=== PATIENT | female | born 1980 | race African-American/Black ===

== ENCOUNTER 2020-02-09 11:23 | Emergency (ER) | payer MEDICARE, OTHER ==
[~2020-02-09] VITALS: Ht 167.6 cm; Wt 95.3 kg
[2020-02-09 12:04] LABS: Basophils # (auto) 0 10 ^3/uL (0-0.2); Eosinophils # (auto) 0.1 10 ^3/uL (0-0.8); Lymphocytes # (auto) 2.1 10 ^3/uL (0.4-5.4); Mean Corpuscular Hgb Conc. 33.5 g/dL (32.0-36.0); Neutrophils # (auto) 2.8 10 ^3/uL (1.6-8.6); Nucleated Red Blood Cells % 0.1 %; White Blood Cell 5.5 10^3/uL (4.4-10.8)
[2020-02-09 12:09] LABS: Basophils % (auto) 0.4 % (0.0-2.0); Eosinophils % (auto) 0.9 % (0.0-7.0); Hematocrit 38.1 % (36.0-46.0); Hemoglobin 12.8 g/dL (12.2-16.2); Mean Corpuscular Hemoglobin 25.4 pg (28.0-32.0); Mean Corpuscular Volume 75.9 fL (80.0-100.0); Monocytes # (auto) 0.5 10 ^3/uL (0-1.3); Monocytes % (auto) 8.8 % (0.0-12.0); Neutrophils % (auto) 50.9 % (37.0-80.0); Platelet Count (auto) 244 10^3/uL (140-450); Red Blood Cells 5.02 10^6/uL (4.0-5.20)
[2020-02-09 12:17] LABS: Albumin 3.6 g/dL (3.4-5.0); Anion Gap 5 (5-15); Blood Urea Nitrogen 15 mg/dL (7-18); Carbon Dioxide 24 mmol/L (21-32); Chloride 109 mmol/L (98-107); Glucose 82 mg/dL (74-106); Potassium 3.7 mmol/L (3.5-5.1); Sodium 138 mmol/L (136-145)
[2020-02-09 12:23] LABS: Alanine Aminotransferase 23 U/L (13-56); Alkaline Phosphatase 63 U/L (45-117); Aspartate Aminotransferase 15 U/L (15-37); BUN/Creatinine Ratio 17.4; Bilirubin, Total 0.3 mg/dL (0.2-1.0); GFR African American 95 mL/min; GFR Non-African American 78 mL/min; Total Protein 7.7 g/dL (6.4-8.2)
[2020-02-09] MEDS ORDERED: IOHEXOL 350 MG/ML 100ML IJ ONE (13:01)
[2020-02-09 14:01] VITALS: BP 103/52
== END 2020-02-09 14:51 | disposition home or self-care (01) ==
LOC: ER 11:23
DX: R07.89 Other chest pain (principal); E78.5 Hyperlipidemia, unspecified; F17.210 Nicotine dependence, cigarettes, uncomplicated; Z88.0 Allergy status to penicillin
CPT/HCPCS: 36415; 71275; 80053; 84484; 85025; 85379; 93005; 99285; Q9967

== ENCOUNTER 2020-04-01 01:24 | Emergency (ER) | payer OTHER ==
[~2020-04-01] VITALS: Ht 167.6 cm; Wt 128.8 kg
[2020-04-01] MEDS ORDERED: MORPHINE SULFATE 4 MG/ML SYR/VIAL IV ONE (07:45)
[2020-04-01] MEDS ORDERED: ONDANSETRON HCL 4 MG/2 ML VIAL IV ONE (07:45)
[2020-04-01] MEDS ORDERED: SODIUM CHLORIDE 0.9% 1,000 ML IV ONE (07:45)
[2020-04-01] MEDS ORDERED: PANTOPRAZOLE 40 MG/10 ML VIAL INJ IV ONE (07:45)
[2020-04-01 08:40] VITALS: BP 122/80
== END 2020-04-01 08:42 | disposition home or self-care (01) ==
LOC: ER 01:24
DX: K80.20 Calculus of gallbladder without cholecystitis without obstruction (principal); F17.210 Nicotine dependence, cigarettes, uncomplicated; R42 Dizziness and giddiness; Z88.0 Allergy status to penicillin
CPT/HCPCS: 71045; 76705; 93005

== ENCOUNTER 2020-04-02 17:55 | Emergency (ER) | payer OTHER ==
[~2020-04-02] VITALS: Ht 167.6 cm; Wt 128.8 kg
[2020-04-02 23:21] LABS: Basophils # (auto) 0 10 ^3/uL (0-0.2); Basophils % (auto) 0.6 % (0.0-2.0); Eosinophils # (auto) 0.1 10 ^3/uL (0-0.8); Eosinophils % (auto) 1.2 % (0.0-7.0); Hematocrit 39.2 % (36.0-46.0); Lymphocytes # (auto) 3.5 10 ^3/uL (0.4-5.4); Lymphocytes % (auto) 45.3 % (10.0-50.0); Mean Corpuscular Hemoglobin 25.2 pg (28.0-32.0); Mean Corpuscular Hgb Conc. 33.1 g/dL (32.0-36.0); Monocytes # (auto) 0.6 10 ^3/uL (0-1.3); Monocytes % (auto) 7.4 % (0.0-12.0); Neutrophils # (auto) 3.5 10 ^3/uL (1.6-8.6); Neutrophils % (auto) 45.5 % (37.0-80.0); Nucleated Red Blood Cells % 0.2 %; Platelet Count (auto) 259 10^3/uL (140-450); Red Blood Cells 5.16 10^6/uL (4.0-5.20); Red Cell Distribution Width 17.4 % (11.8-14.3); White Blood Cell 7.7 10^3/uL (4.4-10.8)
[2020-04-02 23:43] LABS: Albumin 3.6 g/dL (3.4-5.0); Calcium 9.3 mg/dL (8.5-10.1); Potassium 3.9 mmol/L (3.5-5.1)
[2020-04-02 23:46] LABS: BUN/Creatinine Ratio 18.2
[2020-04-02 23:48] LABS: Bilirubin, Total 0.4 mg/dL (0.2-1.0); Total Protein 8.1 g/dL (6.4-8.2)
[2020-04-03] MEDS ORDERED: MORPHINE SULFATE 4 MG/ML SYR/VIAL IV ONE (01:00)
[2020-04-03] MEDS ORDERED: ONDANSETRON HCL 4 MG/2 ML VIAL IV ONE (01:00)
[2020-04-03 01:14] LABS: Amylase 45 U/L (25-115); Lipase 75 U/L (73-393)
[2020-04-03] MEDS ORDERED: HYDROcodone-ACET 5/325MG TAB PO ONE (01:30)
[2020-04-03 02:01] VITALS: BP 115/70
== END 2020-04-03 02:20 | disposition home or self-care (01) ==
LOC: ER 17:55
DX: K80.20 Calculus of gallbladder without cholecystitis without obstruction (principal); E78.5 Hyperlipidemia, unspecified; F17.210 Nicotine dependence, cigarettes, uncomplicated; Z88.0 Allergy status to penicillin
CPT/HCPCS: 36415; 80053; 82150; 83690; 85025; 96374; 99283; J2405

== ENCOUNTER 2020-05-25 14:31 | Emergency (ER) | payer MEDICAID, OTHER ==
[~2020-05-25] VITALS: Ht 167.6 cm; Wt 131.5 kg
[2020-05-25 15:25] VITALS: BP 112/75
[2020-05-25] MEDS ORDERED: ASPirin 81 mg TAB PO ONE (15:45)
[2020-05-25] MEDS ORDERED: PANTOPRAZOLE 40 MG TAB PO ONE (15:45)
[2020-05-25 16:11] LABS: Alcohol, Urine < 3.0 mg/dL (0-10); Amphetamine Screen, Urine NEGATIVE (NEGATIVE); Barbiturate Scree,Urine NEGATIVE (NEGATIVE); Benzodiazephine Screen, Urine NEGATIVE (NEGATIVE); Cannabinoid Screen, Urine NEGATIVE (NEGATIVE); Cocaine Screen, Urine NEGATIVE (NEGATIVE); Opiate Scree,Urine NEGATIVE (NEGATIVE); Phencyclidine Screen, Urine NEGATIVE (NEGATIVE)
[2020-05-25 16:33] LABS: Urine Bacteria FEW /hpf (None Seen); Urine Blood Negative /uL (Negative); Urine Mucus FEW (None Seen); Urine Specific Gravity 1.031 (1.001-1.035); Urine WBC 1 /hpf (0 - 5)
[2020-05-25] MEDS ORDERED: cefTRIAXone SOD 1,000 MG VL IM ONE (16:45)
[2020-05-25 16:51] LABS: Basophils # (auto) 0.1 10 ^3/uL (0-0.2); Eosinophils # (auto) 0.1 10 ^3/uL (0-0.8); Hemoglobin 12.6 g/dL (12.2-16.2); Monocytes # (auto) 0.5 10 ^3/uL (0-1.3); Neutrophils # (auto) 2.6 10 ^3/uL (1.6-8.6); Nucleated Red Blood Cells % 0.2 %; White Blood Cell 6.1 10^3/uL (4.4-10.8)
[2020-05-25 16:52] LABS: Basophils % (auto) 1.9 % (0.0-2.0); Eosinophils % (auto) 1.8 % (0.0-7.0); Hematocrit 37.7 % (36.0-46.0); Lymphocytes # (auto) 2.7 10 ^3/uL (0.4-5.4); Lymphocytes % (auto) 44.6 % (10.0-50.0); Mean Corpuscular Hemoglobin 25.5 pg (28.0-32.0); Mean Corpuscular Hgb Conc. 33.4 g/dL (32.0-36.0); Mean Corpuscular Volume 76.3 fL (80.0-100.0); Monocytes % (auto) 8.2 % (0.0-12.0); Neutrophils % (auto) 43.5 % (37.0-80.0); Platelet Count (auto) 237 10^3/uL (140-450); Red Blood Cells 4.94 10^6/uL (4.0-5.20); Red Cell Distribution Width 17.5 % (11.8-14.3)
[2020-05-25 17:08] LABS: Albumin 3.6 g/dL (3.4-5.0); Anion Gap 5 (5-15); Blood Urea Nitrogen 15 mg/dL (7-18); Calcium 8.9 mg/dL (8.5-10.1); Carbon Dioxide 25 mmol/L (21-32); Chloride 107 mmol/L (98-107); Glucose 73 mg/dL (74-106); Potassium 3.8 mmol/L (3.5-5.1); Sodium 137 mmol/L (136-145)
[2020-05-25 17:13] LABS: Alanine Aminotransferase 18 U/L (13-56); Alkaline Phosphatase 59 U/L (45-117); Aspartate Aminotransferase 13 U/L (15-37); Bilirubin, Total 0.2 mg/dL (0.2-1.0); GFR African American 105 mL/min; GFR Non-African American 87 mL/min; Total Protein 7.4 g/dL (6.4-8.2)
[2020-05-25] MEDS ORDERED: ACETAMINOPHEN 325 MG TAB PO ONE (19:30)
== END 2020-05-26 00:15 | disposition home or self-care (01) ==
LOC: ER 14:31
DX: K29.70 Gastritis, unspecified, without bleeding (principal); N39.0 Urinary tract infection, site not specified; R07.2 Precordial pain; J45.909 Unspecified asthma, uncomplicated; G89.29 Other chronic pain; E78.5 Hyperlipidemia, unspecified; F17.210 Nicotine dependence, cigarettes, uncomplicated; Z88.0 Allergy status to penicillin
CPT/HCPCS: 36415; 71046; 80053; 80307; 81001; 83880; 84443; 84484; 85025; 93005; 96372; 99285; J0696

== ENCOUNTER 2020-06-12 10:31 | Emergency (ER) | payer MEDICAID ==
[~2020-06-12] VITALS: Ht 167.6 cm; Wt 106.1 kg
[2020-06-12 11:27] LABS: Eosinophils # (auto) 0.1 10 ^3/uL (0-0.8); Hemoglobin 12.4 g/dL (12.2-16.2); Mean Corpuscular Hgb Conc. 33.5 g/dL (32.0-36.0); Monocytes # (auto) 0.3 10 ^3/uL (0-1.3); Neutrophils # (auto) 2.1 10 ^3/uL (1.6-8.6); Nucleated Red Blood Cells % 0.2 %
[2020-06-12 11:28] LABS: Basophils # (auto) 0.1 10 ^3/uL (0-0.2); Basophils % (auto) 1.3 % (0.0-2.0); Eosinophils % (auto) 1.6 % (0.0-7.0); Mean Corpuscular Hemoglobin 25.3 pg (28.0-32.0); Mean Corpuscular Volume 75.4 fL (80.0-100.0); Monocytes % (auto) 6.8 % (0.0-12.0); Neutrophils % (auto) 46.3 % (37.0-80.0); Platelet Count (auto) 247 10^3/uL (140-450); Red Cell Distribution Width 17.1 % (11.8-14.3); White Blood Cell 4.5 10^3/uL (4.4-10.8)
[2020-06-12 11:58] LABS: Albumin 3.6 g/dL (3.4-5.0); Anion Gap 5 (5-15); Blood Urea Nitrogen 11 mg/dL (7-18); Carbon Dioxide 25 mmol/L (21-32); Chloride 110 mmol/L (98-107); Glucose 78 mg/dL (74-106); Magnesium 2.5 mg/dL (1.6-2.6); Potassium 3.8 mmol/L (3.5-5.1); Sodium 140 mmol/L (136-145)
[2020-06-12 12:04] LABS: Alanine Aminotransferase 19 U/L (13-56); Alkaline Phosphatase 63 U/L (45-117); Aspartate Aminotransferase 15 U/L (15-37); BUN/Creatinine Ratio 15.3; Bilirubin, Total 0.2 mg/dL (0.2-1.0); GFR African American 117 mL/min; GFR Non-African American 96 mL/min; Total Protein 7.6 g/dL (6.4-8.2)
[2020-06-12] MEDS ORDERED: ASPirin 81 mg TAB PO ONE (15:15)
[2020-06-12 15:38] LABS: INR 0.97 (0.9-1.15); Partial Thromboplastin Time 30.1 sec (23.0-31.2)
[2020-06-12] MEDS ORDERED: PANTOPRAZOLE 40 MG TAB PO ONE (19:30)
[2020-06-12] MEDS ORDERED: HYDROcodone-ACET 5/325MG TAB PO ONE (19:30)
[2020-06-12 19:47] LABS: Urine Bacteria FEW /hpf (None Seen); Urine Blood TRACE /uL (Negative); Urine Specific Gravity 1.027 (1.001-1.035); Urine WBC 5 /hpf (0 - 5)
[2020-06-12 23:00] VITALS: BP 95/57
== END 2020-06-12 23:18 | disposition home or self-care (01) ==
LOC: ER 10:31
DX: K80.20 Calculus of gallbladder without cholecystitis without obstruction (principal); F17.210 Nicotine dependence, cigarettes, uncomplicated; Z88.0 Allergy status to penicillin
CPT/HCPCS: 36415; 71046; 76705; 80053; 81001; 81025; 83735; 83880; 84443; 84484; 85025; 85379; 85610; 85730; 93005

== ENCOUNTER 2020-06-14 16:09 | Emergency (ER) | payer MEDICAID ==
[~2020-06-14] VITALS: Ht 167.6 cm; Wt 133.4 kg
[2020-06-14 16:27] VITALS: BP 152/92
[2020-06-14] MEDS ORDERED: KETOROLAC TROMETH 60MG/2ML VIAL IM ONE (17:15)
== END 2020-06-14 18:02 | disposition home or self-care (01) ==
LOC: ER 16:09
DX: K80.20 Calculus of gallbladder without cholecystitis without obstruction (principal); M51.37 Other intervertebral disc degeneration, lumbosacral region; M54.16 Radiculopathy, lumbar region; F17.210 Nicotine dependence, cigarettes, uncomplicated; Z88.0 Allergy status to penicillin
CPT/HCPCS: 74176; 81002; 81025; 96372; 99284; J1885

== ENCOUNTER 2020-09-15 11:28 | Emergency (ER) | payer MEDICAID ==
[~2020-09-15] VITALS: Ht 167.6 cm; Wt 127.0 kg
[2020-09-15 11:38] VITALS: BP 136/81
[2020-09-15] MEDS ORDERED: SODIUM CHLORIDE 0.9% 500 ML IVB ONE (12:00)
[2020-09-15] MEDS ORDERED: ONDANSETRON HCL 4 MG/2 ML VIAL IV ONE (12:00)
[2020-09-15] MEDS ORDERED: KETOROLAC TROMETH 30 MG/ML 1ML VIAL IV ONE (12:00)
[2020-09-15 13:19] LABS: Eosinophils # (auto) 0.1 10 ^3/uL (0-0.8); Nucleated Red Blood Cells % 0.1 %
[2020-09-15 13:20] LABS: Basophils # (auto) 0.1 10 ^3/uL (0-0.2); Basophils % (auto) 1.8 % (0.0-2.0); Eosinophils % (auto) 1.7 % (0.0-7.0); Hematocrit 34.9 % (36.0-46.0); Hemoglobin 11.8 g/dL (12.2-16.2); Mean Corpuscular Hemoglobin 25.3 pg (28.0-32.0); Mean Corpuscular Hgb Conc. 33.9 g/dL (32.0-36.0); Mean Corpuscular Volume 74.6 fL (80.0-100.0); Monocytes # (auto) 0.6 10 ^3/uL (0-1.3); Monocytes % (auto) 10.7 % (0.0-12.0); Neutrophils # (auto) 2.4 10 ^3/uL (1.6-8.6); Neutrophils % (auto) 46.8 % (37.0-80.0); Platelet Count (auto) 248 10^3/uL (140-450); Red Blood Cells 4.69 10^6/uL (4.0-5.20); Red Cell Distribution Width 16.9 % (11.8-14.3); White Blood Cell 5.2 10^3/uL (4.4-10.8)
[2020-09-15 16:14] LABS: Albumin 3.3 g/dL (3.4-5.0); BUN/Creatinine Ratio 17.6; Bilirubin, Total 0.3 mg/dL (0.2-1.0); Calcium 8.9 mg/dL (8.5-10.1); Potassium 4.1 mmol/L (3.5-5.1); Total Protein 7.3 g/dL (6.4-8.2)
== END 2020-09-15 19:48 | disposition home or self-care (01) ==
LOC: ER 11:28
DX: K80.20 Calculus of gallbladder without cholecystitis without obstruction (principal); N39.0 Urinary tract infection, site not specified; E78.5 Hyperlipidemia, unspecified; F17.210 Nicotine dependence, cigarettes, uncomplicated; Z88.0 Allergy status to penicillin
CPT/HCPCS: 36415; 74176; 80053; 85025

== ENCOUNTER → 2020-10-04 | Outpatient (CLI) | payer MEDICAID ==
[2020-10-04 10:44] LABS: Urine Bacteria FEW /hpf (None Seen); Urine Blood TRACE /uL (Negative); Urine Specific Gravity 1.023 (1.001-1.035); Urine WBC 1 /hpf (0 - 5)
[2020-10-04 10:57] LABS: CRP High Sensitivity 0.38 mg/dL (< 0.3)
== END | disposition home or self-care (01) ==
LOC: LAB 10:08
PROVIDERS: ATTEND Internal Medicine
DX: K76.0 Fatty (change of) liver, not elsewhere classified (principal); R42 Dizziness and giddiness; D64.9 Anemia, unspecified
CPT/HCPCS: 36415; 81001; 82150; 83036; 83690; 84443; 85652; 86141

== ENCOUNTER 2020-12-24 15:04 | Emergency (ER) | payer MEDICAID ==
[~2020-12-24] VITALS: Ht 167.6 cm; Wt 118.8 kg
[2020-12-24] MEDS ORDERED: SODIUM CHLORIDE 0.9% 1,000 ML IVB ONE (15:30)
[2020-12-24] MEDS ORDERED: IOHEXOL 350 MG/ML 100ML IJ ONE (15:51)
[2020-12-24 17:00] LABS: Basophils # (auto) 0.1 10 ^3/uL (0-0.2); Basophils % (auto) 1.8 % (0.0-2.0); Eosinophils # (auto) 0.1 10 ^3/uL (0-0.8); Eosinophils % (auto) 2.2 % (0.0-7.0); Hematocrit 37.5 % (36.0-46.0); Lymphocytes # (auto) 2.5 10 ^3/uL (0.4-5.4); Lymphocytes % (auto) 37.4 % (10.0-50.0); Mean Corpuscular Volume 74.9 fL (80.0-100.0); Monocytes # (auto) 0.5 10 ^3/uL (0-1.3); Monocytes % (auto) 7.7 % (0.0-12.0); Neutrophils # (auto) 3.3 10 ^3/uL (1.6-8.6); Neutrophils % (auto) 50.9 % (37.0-80.0); Nucleated Red Blood Cells % 0.8 %; Platelet Count (auto) 256 10^3/uL (140-450); Red Cell Distribution Width 18.3 % (11.8-14.3); White Blood Cell 6.6 10^3/uL (4.4-10.8)
[2020-12-24 17:23] LABS: Chloride 110 mmol/L (98-107); Potassium 4.2 mmol/L (3.5-5.1); Sodium 141 mmol/L (136-145)
[2020-12-24] MEDS ORDERED: ASPirin 81 mg TAB PO ONE (17:30)
[2020-12-24 17:41] LABS: Alanine Aminotransferase 21 U/L (13-56); Albumin 3.4 g/dL (3.4-5.0); Alkaline Phosphatase 64 U/L (45-117); Anion Gap 6 (5-15); Aspartate Aminotransferase 22 U/L (15-37); BUN/Creatinine Ratio 17.2; Bilirubin, Total 0.3 mg/dL (0.2-1.0); Blood Urea Nitrogen 16 mg/dL (7-18); Carbon Dioxide 25 mmol/L (21-32); GFR African American 86 mL/min; GFR Non-African American 71 mL/min; Glucose 79 mg/dL (74-106); Lipase 79 U/L (73-393); Total Protein 7.3 g/dL (6.4-8.2)
[2020-12-24 18:20] VITALS: BP 129/80
== END 2020-12-24 18:21 | disposition home or self-care (01) ==
LOC: ER 15:04
DX: R07.89 Other chest pain (principal); F41.9 Anxiety disorder, unspecified; F17.210 Nicotine dependence, cigarettes, uncomplicated; E78.5 Hyperlipidemia, unspecified; Z90.49 Acquired absence of other specified parts of digestive tract; Z88.0 Allergy status to penicillin
CPT/HCPCS: 36415; 71275; 80053; 83690; 84484; 85025; 85379; 93005; 99285; Q9967

== ENCOUNTER 2021-02-07 08:53 | Emergency (ER) | payer MEDICAID ==
[~2021-02-07] VITALS: Ht 167.6 cm; Wt 127.0 kg
[2021-02-07] MEDS ORDERED: ASPirin 81 mg TAB PO ONE (09:15)
[2021-02-07 09:34] LABS: Basophils # (auto) 0.1 10 ^3/uL (0-0.2); Eosinophils # (auto) 0.1 10 ^3/uL (0-0.8); Hemoglobin 12.3 g/dL (12.2-16.2); Monocytes # (auto) 0.5 10 ^3/uL (0-1.3)
[2021-02-07 09:37] LABS: Basophils % (auto) 1.4 % (0.0-2.0); Eosinophils % (auto) 1.3 % (0.0-7.0); Hematocrit 34.9 % (36.0-46.0); Lymphocytes # (auto) 2.2 10 ^3/uL (0.4-5.4); Lymphocytes % (auto) 41.4 % (10.0-50.0); Mean Corpuscular Hemoglobin 25.7 pg (28.0-32.0); Mean Corpuscular Hgb Conc. 35.2 g/dL (32.0-36.0); Monocytes % (auto) 9.2 % (0.0-12.0); Neutrophils # (auto) 2.5 10 ^3/uL (1.6-8.6); Neutrophils % (auto) 46.7 % (37.0-80.0); Nucleated Red Blood Cells % 0.1 %; Platelet Count (auto) 231 10^3/uL (140-450); Red Blood Cells 4.78 10^6/uL (4.0-5.20); Red Cell Distribution Width 17.6 % (11.8-14.3); White Blood Cell 5.3 10^3/uL (4.4-10.8)
[2021-02-07 10:00] LABS: Chloride 112 mmol/L (98-107); Potassium 3.8 mmol/L (3.5-5.1); Sodium 141 mmol/L (136-145)
[2021-02-07 10:18] LABS: Alanine Aminotransferase 18 U/L (13-56); Albumin 3.4 g/dL (3.4-5.0); Alkaline Phosphatase 63 U/L (45-117); Anion Gap 7 (5-15); Aspartate Aminotransferase 13 U/L (15-37); BUN/Creatinine Ratio 17.3; Bilirubin, Total 0.3 mg/dL (0.2-1.0); Blood Urea Nitrogen 14 mg/dL (7-18); Calcium 8.7 mg/dL (8.5-10.1); Carbon Dioxide 22 mmol/L (21-32); GFR African American 101 mL/min; GFR Non-African American 84 mL/min; Glucose 87 mg/dL (74-106); Magnesium 2.2 mg/dL (1.6-2.6); Total Protein 7.6 g/dL (6.4-8.2)
[2021-02-07 10:21] LABS: Urine Bacteria FEW /hpf (None Seen); Urine Blood Negative /uL (Negative); Urine Specific Gravity 1.034 (1.001-1.035); Urine WBC 4 /hpf (0 - 5)
[2021-02-07 10:59] VITALS: BP 113/76
== END 2021-02-07 11:11 | disposition home or self-care (01) ==
LOC: ER 08:53
DX: R07.89 Other chest pain (principal); N39.0 Urinary tract infection, site not specified; E78.5 Hyperlipidemia, unspecified; F17.210 Nicotine dependence, cigarettes, uncomplicated; Z90.49 Acquired absence of other specified parts of digestive tract; Z88.0 Allergy status to penicillin
CPT/HCPCS: 36415; 71046; 80053; 81001; 83690; 83735; 84484; 85025; 93005

== ENCOUNTER 2021-03-20 09:04 | Emergency (ER) | payer MEDICAID ==
[~2021-03-20] VITALS: Ht 167.6 cm; Wt 119.7 kg
[2021-03-20 09:35] LABS: Basophils # (auto) 0.1 10 ^3/uL (0-0.2); Eosinophils # (auto) 0.1 10 ^3/uL (0-0.8); Monocytes # (auto) 0.4 10 ^3/uL (0-1.3); Nucleated Red Blood Cells % 0.1 %
[2021-03-20 09:39] LABS: Basophils % (auto) 1.3 % (0.0-2.0); Eosinophils % (auto) 2.2 % (0.0-7.0); Hematocrit 36.4 % (36.0-46.0); Hemoglobin 12.2 g/dL (12.2-16.2); Lymphocytes # (auto) 2.4 10 ^3/uL (0.4-5.4); Mean Corpuscular Hemoglobin 24.5 pg (28.0-32.0); Mean Corpuscular Hgb Conc. 33.5 g/dL (32.0-36.0); Mean Corpuscular Volume 73.2 fL (80.0-100.0); Monocytes % (auto) 6.7 % (0.0-12.0); Neutrophils # (auto) 2.4 10 ^3/uL (1.6-8.6); Neutrophils % (auto) 44.8 % (37.0-80.0); Red Blood Cells 4.98 10^6/uL (4.0-5.20); Red Cell Distribution Width 18.6 % (11.8-14.3); White Blood Cell 5.3 10^3/uL (4.4-10.8)
[2021-03-20 10:05] LABS: Albumin 3.2 g/dL (3.4-5.0); Calcium 8.5 mg/dL (8.5-10.1); Potassium 3.9 mmol/L (3.5-5.1)
[2021-03-20 10:09] LABS: BUN/Creatinine Ratio 15.7; Bilirubin, Total 0.5 mg/dL (0.2-1.0); Total Protein 7.3 g/dL (6.4-8.2)
[2021-03-20] MEDS ORDERED: ASPirin 81 mg TAB PO ONE (10:30)
[2021-03-20 10:35] VITALS: BP 109/69
== END 2021-03-20 11:19 | disposition home or self-care (01) ==
LOC: ER 09:04
DX: R10.30 Lower abdominal pain, unspecified (principal); F41.9 Anxiety disorder, unspecified; E46 Unspecified protein-calorie malnutrition; E78.5 Hyperlipidemia, unspecified; F17.210 Nicotine dependence, cigarettes, uncomplicated; Z68.41 Body mass index [BMI] 40.0-44.9, adult; Z90.49 Acquired absence of other specified parts of digestive tract; Z88.0 Allergy status to penicillin
CPT/HCPCS: 36415; 74176; 80053; 83690; 84484; 85025

== ENCOUNTER → 2024-08-08 | Outpatient (CLI) | payer MEDICAID ==
[2024-08-08 10:38] LABS: Urine Bacteria None Seen /hpf (None Seen)
[2024-08-08 11:11] LABS: Basophils # (auto) 0 10 ^3/uL (0-0.2); Basophils % (auto) 0.7 % (0.0-2.0); Eosinophils # (auto) 0.2 10 ^3/uL (0-0.8); Eosinophils % (auto) 2.8 % (0.0-7.0); Hematocrit 36.4 % (36.0-46.0); Hemoglobin 12.2 g/dL (12.2-16.2); Lymphocytes # (auto) 2.3 10 ^3/uL (0.4-5.4); Lymphocytes % (auto) 41.1 % (10.0-50.0); Mean Corpuscular Hemoglobin 25.4 pg (28.0-32.0); Mean Corpuscular Hgb Conc. 33.6 g/dL (32.0-36.0); Mean Corpuscular Volume 75.6 fL (80.0-100.0); Monocytes # (auto) 0.4 10 ^3/uL (0-1.3); Monocytes % (auto) 7.8 % (0.0-12.0); Neutrophils # (auto) 2.6 10 ^3/uL (1.6-8.6); Neutrophils % (auto) 47.6 % (37.0-80.0); Platelet Count (auto) 224 10^3/uL (140-450); Red Blood Cells 4.82 10^6/uL (4.0-5.20); Red Cell Distribution Width 16.6 % (11.8-14.3); White Blood Cell 5.5 10^3/uL (4.4-10.8)
[2024-08-08 11:23] LABS: Urine Blood Negative /uL (Negative); Urine Clarity Turbid (Clear); Urine Color Light-Yellow (Yellow); Urine Mucus FEW (None Seen); Urine Protein, UAD Negative (Negative); Urine Specific Gravity 1.024 (1.001-1.035); Urine Urobilinogen Normal (Negative); Urine WBC 4 /hpf (0 - 5)
[2024-08-08 11:24] LABS: Alanine Aminotransferase 10 U/L (7-40); Albumin 3.7 g/dL (3.2-4.8); Alkaline Phosphatase 64 U/L (46-116); Anion Gap 7 (5-15); Aspartate Aminotransferase 11 U/L (13-40); BUN/Creatinine Ratio 14.5 (10.0-20.0); Bilirubin, Total 0.3 mg/dL (0.2-1.0); Blood Urea Nitrogen 11 mg/dL (9-23); Calcium 9.6 mg/dL (8.7-10.4); Carbon Dioxide 26 mmol/L (20-31); Chloride 108 mmol/L (98-107); Cholesterol 189 mg/dL (< 200); Glucose 87 mg/dL (74-106); HDL Cholesterol 47 mg/dL (40-59); LDL Cholesterol 133 mg/dL (< 100); Magnesium 1.9 mg/dL (1.6-2.6); Sodium 141 mmol/L (136-145); Triglycerides 77 mg/dL (< 150)
[2024-08-08 11:25] LABS: Total Protein 6.4 g/dL (5.7-8.2)
[2024-08-08 11:41] LABS: Follicle Stimulating Hormone 6.59 IU/L (SEE BELOW); Leuteinizing Hormone 11.7 IU/L
== END | disposition home or self-care (01) ==
LOC: LAB 10:17
PROVIDERS: ATTEND Internal Medicine
DX: I10 Essential (primary) hypertension (principal); E66.9 Obesity, unspecified; F41.9 Anxiety disorder, unspecified; R23.2 Flushing; Z00.00 Encounter for general adult medical examination without abnormal findings
CPT/HCPCS: 36415; 80053; 80061; 81001; 82670; 83001; 83002; 83036; 83735; 84144; 84443; 85025

== ENCOUNTER → 2024-09-15 | Outpatient (CLI) | payer MEDICAID | END | disposition home or self-care (01) | LOC: LAB 09:00 | PROVIDERS: ATTEND Internal Medicine | DX: R07.9 Chest pain, unspecified (principal) | CPT/HCPCS: 36415; 84484; 85379 ==

== ENCOUNTER 2024-09-28 09:26 | Inpatient (IN) | payer MEDICAID ==
[~2024-09-28] VITALS: Ht 167.6 cm; Wt 130.2 kg
--- NOTE | 2024-09-28 09:34 | ECG ---
[facility] Test Date: 2024-09-28 Test Time: 09:33:05 Pat Name: ORIANA RED Department: ER Room: 0202T Gender: F Maintenance [place]: ONEIL : 1980 Requested By: RAOUL ZUNIGA Order Number: [id number] Reading MD: Naveen Alvarenga Measurements Intervals [place] Rate: 95 P: 40 MA: 154 QRS: 55 QRSD: 89 T: -6 QT: 340 QTc: 428 Interpretive Statements Sinus rhythm Low voltage, precordial leads Abnormal R-wave progression, early transition Borderline T abnormalities, diffuse leads Electronically Signed On 09-29-2024 17:16:42 PST by Naveen Alvarenga Please click the below link to view image of tracing.
--- NOTE | 2024-09-28 09:42 | ED.PDOC ---
HPI Comments 44 year old female presents to the ED with chief complaint of chest pain. Patient reports that she has been experiencing sharp right sided chest pain just underneath her breast for the past 3 weeks intermittently, however today it started to be constant. Patient relays that she was following up with her PCP who had ordered a CT and echocardiogram to be performed on her, however, she missed the CT scan today to come into the ED. Patient notes associated dizzy spells. Patient denies any SOB, cough, numbness, weakness, dizziness, or headache. Chief Complaint: Chest Pain Time Seen by MD: 09:37 Primary Care Provider: RICCI Reviewed Notes: Nurses Notes, Medications, Allergies Allergies: Coded Allergies: Penicillins (Verified Allergy, Unknown, 02/09/20) Home Meds No Active Prescriptions or Reported Meds Information Source: Patient Mode of Arrival: Ambulatory Severity: Moderate Timing: Weeks Duration: Since onset Prehospital treatment: None Location: Chest (R) Radiation: No Radiation Quality: Sharp Onset: At Rest Cardiac Risk Factors: Hyperlipidemia PE Risk Factors: None History of: Similar pain in past Past Medical History PAST MEDICAL HISTORY: High Lipids Surgical History: 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, 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 Family History Family History: Reviewed,noncontributory to illness Social History Smoker: Cigarettes, Less Than 1 Pack/Day Alcohol: Denies ETOH Use Drugs: Denies Drug Use Lives In: Home Constitutional: denies: chills, diaphoresis, fatigue, fever, malaise, sweats, weakness, others EENTM: denies: blurred vision, double vision, ear bleeding, ear discharge, ear drainage, ear pain, ear ringing, eye pain, eye redness, hearing loss, mouth pain, mouth swelling, nasal discharge, nose bleeding, nose congestion, nose pain, photophobia, tearing, throat pain, throat swelling, voice changes, others Respiratory: denies: cough, hemoptysis, orthopnea, SOB at rest, shortness of breath, SOB with excertion, stridor, wheezing, others Cardiovascular: reports: chest pain, dizzy spells; denies: diaphoresis, Dyspnea on exertion, edema, irregular heart beat, left arm pain, lightheadedness, palpitations, PND, syncope, others Gastrointestinal: denies: abdomen distended, abdominal pain, blood streaked bowels, constipated, diarrhea, dysphagia, difficulty swallowing, hematemesis, melena, nausea, poor appetite, poor fluid intake, rectal bleeding, rectal pain, vomiting, others Genitourinary: denies: abnormal vagina bleeding, burning, dyspareunia, dysuria, flank pain, frequency, hematuria, incontinence, pain, , vagina discharge, urgency, others Musculoskeletal: denies: back pain, gout, joint pain, joint swelling, muscle pain, muscle stiffness, neck pain, others Integumetry: denies: bruises, change in color, change in hair/nails, dryness, laceration, lesions, lumps, rash, wounds, others Allergic/Immunocompromised: denies: Difficulty Healing, Frequent Infections, Hives, Itching, others Hematologic/Lymphatic: denies: anemia, blood clots, easy bleeding, easy bruising, swollen glands, others Endocrine: denies: excessive hunger, excessive sweating, excessive thirst, excessive urination, flushing, intolerance to cold, intolerance to heat, unexplained weight gain, unexplained weight loss, others Psychiatric: denies: anxiety, bipolar disorder, depression, hopeless, panic disorder, schizophrenia, sleepless, suicidal, others All Other Systems: Reviewed and Negative Physical Exam General Appearance: Moderate Distress, Other (Increased BMI) HEENT: Normal ENT Inspection, PERRL/EOMI, Scleral Icterus (R) Neck: Full Range of Motion, Non-Tender, Normal, Normal Inspection Respiratory: Chest Non-Tender, Lungs Clear, No Accessory Muscle Use, No Respiratory Distress, Normal Breath Sounds Cardiovascular: No Edema, No JVD, No Murmur, No Gallop, Normal Peripheral Pulses, Regular Rate/Rhythm Breast Exam: Deferred Gastrointestinal: No Organomegaly, Non Tender, No Pulsatile Mass, Normal Bowel Sounds, Soft Genitalia: Deferred Pelvic: Deferred Rectal: Deferred Extremities: No calf tenderness, Normal capillary refill, Normal inspection, Normal range of motion, Non-tender, No pedal edema Musculoskeletal : Apperance: Normal Neurologic: Alert, before school II-XII nml as Tested, No Motor Deficits, Normal Affect, Normal Mood, No Sensory Deficits Cerebellar Function: Normal Reflexes: Normal Skin: Dry, Normal Color, Warm Peripheral Pulses: 3+ Radial (R), 3+ Radial (L) Lymphatic: No Adenopathy Was a procedure done? Was a procedure done?: No CP Differential Dx Differential Diagnosis: A-fib, A-Flutter, Angina, Anxiety / Panic Attack, Atrial Dysrhythmia, Electrolyte Disorder X-Ray, Labs, Meds, VS Vital Signs Date Time Temp Pulse Resp B/P (MAP) Pulse Ox O2 Delivery O2 Flow Rate FiO2 09/28/24 10:24 91 09/28/24 10:06 98.3 95 18 102/67 (79) 97 98.3 09/28/24 10:06 97 18 97 Room Air 09/28/24 09:33 95 09/28/24 09:27 98.0 91 20 118/77 (91) 98 Lab Test 09/28/24 10:30 09/28/24 09:39 09/28/24 09:38 Range/Units Troponin I High Sensitivity < 3 L < 3 L </=34 ng/L Urine Color Yellow Yellow Urine Clarity Turbid H Clear Urine pH 5.5 5.0-9.0 Urine Specific [place] 1.035 1.001-1.035 Urine Protein Trace H Negative Urine Ketones Negative Negative Urine Blood Negative Negative /uL Urine Nitrite Negative Negative Urine Bilirubin Negative Negative Urine Urobilinogen Normal Negative mg/dL Urine Leukocyte Esterase Trace Negative /uL Urine RBC 2 0 - 4 /hpf Urine Microscopic WBC 3 0-5 /HPF Urine Squamous Epithelial Cells Few <5 /hpf Urine Bacteria None seen None Seen /hpf Urine Mucus Few None Seen Urine Glucose Normal Normal mg/dL White Blood Count 5.3 4.4-10.8 10^3/uL Red Blood Count 5.11 4.0-5.20 10^6/uL Hemoglobin 12.9 12.2-16.2 g/dL Hematocrit 38.4 36.0-46.0 % Mean Corpuscular Volume 75.3 L 80.0-100.0 fL Mean Corpuscular Hemoglobin 25.2 L 28.0-32.0 pg Mean Corpuscular Hemoglobin Concent 33.5 32.0-36.0 g/dL Red Cell Distribution Width 17.3 H 11.8-14.3 % Platelet Count 236 140-450 10^3/uL Mean Platelet Volume 7.8 6.9-10.8 fL Neutrophils (%) (Auto) 54.1 37.0-80.0 % Lymphocytes (%) (Auto) 35.5 10.0-50.0 % Monocytes (%) (Auto) 7.7 0.0-12.0 % Eosinophils (%) (Auto) 1.8 0.0-7.0 % Basophils (%) (Auto) 0.9 0.0-2.0 % Neutrophils # (Auto) 2.9 1.6-8.6 10 ^3/uL Lymphocytes # (Auto) 1.9 0.4-5.4 10 ^3/uL Monocytes # (Auto) 0.4 0-1.3 10 ^3/uL Eosinophils # (Auto) 0.1 0-0.8 10 ^3/uL Basophils # (Auto) 0 0-0.2 10 ^3/uL Nucleated Red Blood Cells 0.2 % D-Dimer, Quantitative 0.68 H 0.0-0.49 mg/L FEU Sodium Level 140 136-145 mmol/L Potassium Level 3.6 3.5-5.1 mmol/L Chloride Level 108 H 98-107 mmol/L Carbon Dioxide Level 25 20-31 mmol/L Anion Gap 7 5-15 Blood Urea Nitrogen 15 9-23 mg/dL Creatinine 0.82 0.550-1.02 mg/dL Glomerular Filtration Rate Calc 91 >90 mL/min BUN/Creatinine Ratio 18.3 10.0-20.0 Serum Glucose 93 74-106 mg/dL Calcium Level 9.5 8.7-10.4 mg/dL Total Bilirubin 0.3 0.2-1.0 mg/dL Aspartate Amino Transferase (AST) 12 L 13-40 U/L Alanine Aminotransferase (ALT) 14 7-40 U/L Alkaline Phosphatase 69 46-116 U/L Total Protein 7.1 5.7-8.2 g/dL Albumin 4.4 3.2-4.8 g/dL Current Medications Medications (Trade) Dose Ordered Sig/Gee Route Start Time Stop Time Status Last Admin Aspirin 325 mg ONCE ONCE PO 09/28/24 09:45 09/28/24 09:46 DC 09/28/24 10:09 Patient alert. Complaining of chest pain. Increased BMI. Vitals stable. Smoke cigarettes. Counseled patient on effects of smoking cigarettes for 15 minutes. Vitals stable. EKG does not show any acute changes. Possibly will need echo. Explained to the patient. Chest XR: FINDINGS: No pneumothorax, pulmonary edema, or consolidative infiltrates. The heart is not enlarged. No fractures are identified about the bony thorax. There is abundant overlying adipose tissue. IMPRESSION: Obesity without evidence of acute intrathoracic process. Images Reviewed?: Images reviewed and evaluated by me Time of 1ST Reevaluation: 10:37 Reevaluation 1ST: Unchanged Patient Education/Counseling: Diagnosis, Treatment Family Education/Counseling: No Family Present Departure 1 Departure Time of Disposition: 09:44 Impression: Primary Impression: Chest pain of unknown etiology Disposition: ADMITTED INPATIENT Admit to: Med Surg Condition: Guarded e-Prescriptions No Active Prescriptions or Reported Meds Critical Care Note Critical Care Time?: No Stability Stability form required: No Heart Score Heart Score: Heart Score Response (Comments) Value History Slightly Suspicious 0 EKG Normal 0 Age <45 0 Risk Factors 1 or 2 risk factors 1 Troponin Normal limit 0 Total 1 I personally scribed for RAOUL ZUNIGA MD ([email or web address]) on 09/28/24 at 09:42. Electronically submitted by Sven Boyd ([email or web address]). I personally scribed for RAOUL ZUNIGA MD ([email or web address]) on 09/28/24 at 11:02. Electronically submitted by Sven Boyd ([email or web address]). RAOUL ZUNIGA MD Sep 28, 2024 09:42
[2024-09-28 10:07] LABS: Basophils # (auto) 0 10 ^3/uL (0-0.2); Eosinophils # (auto) 0.1 10 ^3/uL (0-0.8); Mean Corpuscular Hemoglobin 25.2 pg (28.0-32.0); Monocytes # (auto) 0.4 10 ^3/uL (0-1.3)
[2024-09-28] MEDS: ASPirin 325 MG TAB PO ONE (10:09)
[2024-09-28] MEDS: NITROGLYCERIN 0.4 MG SL TAB SL ONE (10:10)
[2024-09-28 10:13] LABS: Basophils % (auto) 0.9 % (0.0-2.0); Eosinophils % (auto) 1.8 % (0.0-7.0); Hematocrit 38.4 % (36.0-46.0); Hemoglobin 12.9 g/dL (12.2-16.2); Lymphocytes # (auto) 1.9 10 ^3/uL (0.4-5.4); Lymphocytes % (auto) 35.5 % (10.0-50.0); Mean Corpuscular Hgb Conc. 33.5 g/dL (32.0-36.0); Mean Corpuscular Volume 75.3 fL (80.0-100.0); Monocytes % (auto) 7.7 % (0.0-12.0); Neutrophils # (auto) 2.9 10 ^3/uL (1.6-8.6); Neutrophils % (auto) 54.1 % (37.0-80.0); Nucleated Red Blood Cells % 0.2 %; Platelet Count (auto) 236 10^3/uL (140-450); Red Blood Cells 5.11 10^6/uL (4.0-5.20); Red Cell Distribution Width 17.3 % (11.8-14.3); White Blood Cell 5.3 10^3/uL (4.4-10.8)
--- NOTE | 2024-09-28 10:19 | DVH ---
CHEST RADIOGRAPH Indication: CP Technique: Single frontal view of the chest was obtained COMPARISON: CHEST PORTABLE on DOS: 12/19/20 ; CT scan of the chest dated 12/24/2020 FINDINGS: No pneumothorax, pulmonary edema, or consolidative infiltrates. The heart is not enlarged. No fractu res are identified about the bony thorax. There is abundant overlying adipose tissue. IMPRESSION: Obesity without evidence of acute intrathoracic process.
[2024-09-28 10:32] LABS: Alanine Aminotransferase 14 U/L (7-40); Albumin 4.4 g/dL (3.2-4.8); Alkaline Phosphatase 69 U/L (46-116); Anion Gap 7 (5-15); BUN/Creatinine Ratio 18.3 (10.0-20.0); Blood Urea Nitrogen 15 mg/dL (9-23); Calcium 9.5 mg/dL (8.7-10.4); Carbon Dioxide 25 mmol/L (20-31); Glucose 93 mg/dL (74-106); Potassium 3.6 mmol/L (3.5-5.1); Sodium 140 mmol/L (136-145)
[2024-09-28 10:33] LABS: Bilirubin, Total 0.3 mg/dL (0.2-1.0); Total Protein 7.1 g/dL (5.7-8.2)
[2024-09-28 10:39] LABS: Urine Bacteria None Seen /hpf (None Seen)
[2024-09-28 10:40] LABS: Aspartate Aminotransferase 12 U/L (13-40); Chloride 108 mmol/L (98-107)
[2024-09-28 10:47] LABS: Urine Blood Negative /uL (Negative); Urine Clarity Turbid (Clear); Urine Color Yellow (Yellow); Urine Mucus FEW (None Seen); Urine Protein, UAD TRACE (Negative); Urine Specific Gravity 1.035 (1.001-1.035); Urine Squamous Epithelial Cell FEW /hpf (<5); Urine Urobilinogen Normal (Negative); Urine WBC 3 /HPF (0-5); Urine pH 5.5 (5.0-9.0)
[2024-09-28] MEDS ORDERED: MORPHINE SULFATE 4 MG/ML SYR/VIAL IV PRN (12:30)
[2024-09-28] MEDS ORDERED: ACETAMINOPHEN 325 MG TAB PO PRN (12:30)
[2024-09-28] MEDS ORDERED: NITROGLYCERIN 0.4 MG SL TAB SL PRN ×2 (12:30)
[2024-09-28] MEDS ORDERED: ONDANSETRON HCL 4 MG/2 ML VIAL IV PRN (12:30)
--- NOTE | 2024-09-28 12:41 | DVHHP2 ---
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 She states she has a outpatient echo and CT scan of the chest order she states she had to go today for her pain was so severe she came to the ER for evaluation. 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 She states when she was sitting at work she has a sharp pain that radiates to her chest wall. She denies any family history of PE and she has no history PE. She does state some dizziness when she was getting to standing position and walk at times. Does complain mild headache but no thunderclap headache. There was no vomiting no diarrhea. She does smoke by history. When evaluating patient's labs and imaging patient was found to have CBC unremarkable CMP unremarkable troponin was negative labs three lipase was negative D-dimer was elevated at 0.68 we will pursue CTA of the chest. Also we will admit and echocardiogram Past Medical History Hyperlipidemia vertigo Past Surgical History Gallbladder surgery Family History Reviewed, non-contributory to the management of this case. Past Social History Patient does smoke by history but denies drug or alcohol use Review of Systems Constitutional: No: Fever, Chills, Sweats, Weakness, Malaise, Other Eyes: No: Pain, Vision change, Conjunctivae inflammation, Eyelid inflammation, Other, Redness ENT: No: Ear pain, Ear discharge, Nose pain, Nose discharge, Nose congestion, Mouth pain, Mouth swelling, Throat pain, Throat swelling, Other Respiratory: Shortness of breath; No: Cough, Dry, SOB with excertion, Wheezing, Hemoptysis, Pleuritic Pain, Sputum, Wheezing, Other Cardiovascular: Chest Pain; No: Palpitations, Orthopnea, Paroxysmal Noc. Dyspnea, Edema, Lt Headedness, Other Gastrointestinal: No: Nausea, Vomiting, Abdominal Pain, Diarrhea, Constipation, Melena, Hematochezia, Other Genitourinary: No Dysuria, No Frequency, No Incontinence, No Hematuria, No Retention, No Other Musculoskeletal: No: other, neck pain, shoulder pain, arm pain, back pain, hand pain, leg pain, foot pain Skin: No: Rash, Lesions, Jaundice, Bruising, Other Neurological: No: Weakness, Numbness, Incoordination, Change in speech, Confusion, Seizures, Other Allergies: Coded Allergies: Penicillins (Verified Allergy, Unknown, 02/09/20) Medications Current Medications Medications Dose Ordered Sig/Gee Route Start Time Stop Time Status Last Admin Dose Admin Aspirin 81 mg DAILY PO 09/29/24 10:00 UNV Atorvastatin Calcium 40 mg HS PO 09/28/24 22:00 UNV Metoprolol Tartrate 12.5 mg Q12HR PO 09/28/24 22:00 UNV Morphine Sulfate 2 mg Q30MP PRN IV 09/28/24 12:30 UNV Acetaminophen 325 mg Q4HP PRN PO 09/28/24 12:30 UNV Docusate Sodium 100 mg DAILY PO 09/29/24 10:00 UNV Nitroglycerin 0.4 mg Q5MINP PRN SL 09/28/24 12:30 UNV Ondansetron HCl 4 mg Q4HP PRN IV 09/28/24 12:30 UNV Nitroglycerin 0.4 mg Q5MINP PRN SL 09/28/24 12:30 UNV Exam Vital Signs Vital Signs Date Time Temp Pulse Resp B/P (MAP) Pulse Ox O2 Delivery O2 Flow Rate FiO2 09/28/24 10:24 91 09/28/24 10:06 98.3 18 102/67 (79) 97 98.3 09/28/24 10:06 Room Air General Appearance: Alert, Oriented X3, Cooperative, No acute distress HEENT: Atraumatic, PERRLA, EOMI, Mucous membr. moist/pink Respiratory: Clear to auscultation, Normal air movement Cardiovascular: Regular rate, Normal S1, Normal S2, No murmurs Abdominal: Normal bowel sounds, Soft, No tenderness, No hepatospenomegaly, No masses Extremities: No clubbing, No cyanosis, No edema, Normal pulses, No tenderness/swelling Skin: No rashes, No breakdown, No significant lesion Neuro: Normal gait, Normal speech, Strength at 5/5 X4 ext, Normal tone, Sensation intact, Cranial nerves 3-12 NL Psych/Mental Status: Mental status NL, Mood NL Labs/Xrays Chest x-ray unremarkable I reviewed labs, imaging CT scan abdomen pelvis, EKG and all diagnostic studies on this patient from ED records and the medical chart Labs Test 09/28/24 10:30 09/28/24 09:39 09/28/24 09:38 Range/Units Troponin I High Sensitivity < 3 L </=34 ng/L Urine Color Yellow Yellow Urine Clarity Turbid H Clear Urine pH 5.5 5.0-9.0 Urine Specific [place] 1.035 1.001-1.035 Urine Protein Trace H Negative Urine Ketones Negative Negative Urine Blood Negative Negative /uL Urine Nitrite Negative Negative Urine Bilirubin Negative Negative Urine Urobilinogen Normal Negative mg/dL Urine Leukocyte Esterase Trace Negative /uL Urine RBC 2 0 - 4 /hpf Urine Microscopic WBC 3 0-5 /HPF Urine Squamous Epithelial Cells Few <5 /hpf Urine Bacteria None seen None Seen /hpf Urine Mucus Few None Seen Urine Glucose Normal Normal mg/dL White Blood Count 5.3 4.4-10.8 10^3/uL Red Blood Count 5.11 4.0-5.20 10^6/uL Hemoglobin 12.9 12.2-16.2 g/dL Hematocrit 38.4 36.0-46.0 % Mean Corpuscular Volume 75.3 L 80.0-100.0 fL Mean Corpuscular Hemoglobin 25.2 L 28.0-32.0 pg Mean Corpuscular Hemoglobin Concent 33.5 32.0-36.0 g/dL Red Cell Distribution Width 17.3 H 11.8-14.3 % Platelet Count 236 140-450 10^3/uL Mean Platelet Volume 7.8 6.9-10.8 fL Neutrophils (%) (Auto) 54.1 37.0-80.0 % Lymphocytes (%) (Auto) 35.5 10.0-50.0 % Monocytes (%) (Auto) 7.7 0.0-12.0 % Eosinophils (%) (Auto) 1.8 0.0-7.0 % Basophils (%) (Auto) 0.9 0.0-2.0 % Neutrophils # (Auto) 2.9 1.6-8.6 10 ^3/uL Lymphocytes # (Auto) 1.9 0.4-5.4 10 ^3/uL Monocytes # (Auto) 0.4 0-1.3 10 ^3/uL Eosinophils # (Auto) 0.1 0-0.8 10 ^3/uL Basophils # (Auto) 0 0-0.2 10 ^3/uL Nucleated Red Blood Cells 0.2 % D-Dimer, Quantitative 0.68 H 0.0-0.49 mg/L FEU Sodium Level 140 136-145 mmol/L Potassium Level 3.6 3.5-5.1 mmol/L Chloride Level 108 H 98-107 mmol/L Carbon Dioxide Level 25 20-31 mmol/L Anion Gap 7 5-15 Blood Urea Nitrogen 15 9-23 mg/dL Creatinine 0.82 0.550-1.02 mg/dL Glomerular Filtration Rate Calc 91 >90 mL/min BUN/Creatinine Ratio 18.3 10.0-20.0 Serum Glucose 93 74-106 mg/dL Calcium Level 9.5 8.7-10.4 mg/dL Total Bilirubin 0.3 0.2-1.0 mg/dL Aspartate Amino Transferase (AST) 12 L 13-40 U/L Alanine Aminotransferase (ALT) 14 7-40 U/L Alkaline Phosphatase 69 46-116 U/L Total Protein 7.1 5.7-8.2 g/dL Albumin 4.4 3.2-4.8 g/dL Assessment/Plan Assessment/Plan acute chest pain eval for acs ordered cxr ordered ekg no stemi and trop negative consider cards consult if echo is abnormal ordered ander ordered atorvastatin ordered morphine as needed for pain, ordered lipid panel acute cystitis ordered ceftriaxone ordered urine culture chronic problems anxiety depression fen/ppx diet ivf hl no gi ppx since hx of gerds or gi bleed no dvt ppx since pt is ambulatory plan admit to tele for chest pain Plan discussed with: Patient My Orders Orders - JACOBO LIGHT DNP Procedure Category Date Status [facility] 09/28/24 Transmitted Admit ADMIT 09/28/24 Transmitted 12:25 Code Status CODE 09/28/24 Transmitted 12:25 Vital Signs ROSITA 09/28/24 In Process 12:25 Loss Control Consultant ROSITA 09/28/24 In Process 12:25 May Elevate Hob ____ ROSITA 09/28/24 In Process Degrees 12:25 Cardiac DIET 09/28/24 Transmitted Diet-2gna,Lofat,Lochol Lunch Aspirin Tablet PHA 09/29/24 Logged 10:00 Atorvastatin (Lipitor) PHA 09/28/24 Logged 22:00 Metoprolol Tartrate PHA 09/28/24 Logged Tablet (Lopressor Ta 22:00 Morphine Sulfate PHA 09/28/24 Logged Injection 12:30 Acetaminophen Tablet PHA 09/28/24 Logged (Tylenol Tablet) 12:30 Docusate Sodium PHA 09/29/24 Logged Capsule (Colace 10:00 Pulse Oximeter Check RT 09/28/24 Logged 12:25 Oxygen By Nasal RT 09/28/24 Transmitted Cannula 12:25 Complete Blood Count LAB 09/29/24 Verified 04:00 Comprehensive LAB 09/29/24 Verified Metabolic Panel 04:00 Lipid Panel LAB 09/29/24 Verified 04:00 Prothrombin Time W/ LAB 09/28/24 Logged INR 12:25 Echo 2d Mode Cardiac US 09/28/24 Logged DOP 12:25 Nitroglycerin PHA 09/28/24 Logged Sublingual (Ntrostat 12:30 Ondansetron Hcl PHA 09/28/24 Logged (Zofran) 12:30 Magnesium LAB 09/28/24 Logged 12:25 Lipase LAB 09/28/24 Logged 12:25 Troponin-I Hs LAB 09/28/24 Logged 12:25 Cardiac ROSITA 09/28/24 In Process Rehabilitation - Outpa Nitroglycerin PHA 09/28/24 Logged Sublingual (Ntrostat 12:30 Stat Ekg For Chest ROSITA 09/28/24 In Process Pain 12:25 Notify Of Changes ROSITA 09/28/24 In Process From Base 12:25 Ocean Import Representative For ROSITA 09/28/24 In Process 24 Hours 12:25 Emergency Dysrhythmia ROSITA 09/28/24 In Process Protocol 12:25 Rhythm Strips Once ROSITA 09/28/24 In Process Every Shift 12:25 Oxygen By Nasal RT 09/28/24 Transmitted Cannula 12:25 Troponin-I Hs LAB 09/28/24 Logged 13:25 Troponin-I Hs LAB 09/28/24 Logged 15:[address] 09/28/24 Logged Contrast 12:25 Test, Urine LAB 09/28/24 In Process 12:25 Date of Service: Sep 28, 2024 Billing Provider: JACOBO LIGHT DNP Common Visit Codes: [id number] INP/OBS CARE (HIGH) JACOBO LIGHT [facility] Sep 28, 2024 12:41
[2024-09-28 12:56] LABS: INR 0.97 (0.9-1.15); Prothrombin Time 10.3 sec (9.3-11.8)
[2024-09-28] MEDS: IOHEXOL 350 MG/ML 100ML IJ ONE (13:20)
[2024-09-28 13:30] VITALS: PULSE 83; RESP 17; O2SAT 100
[2024-09-28 13:34] LABS: Magnesium 1.8 mg/dL (1.6-2.6)
--- NOTE | 2024-09-28 13:38 | DVH ---
CTA CHEST INDICATION: eval for pe elevated ddimer TECHNIQUE: Multidetector CTA of the chest was performed of the chest with 100 cc of intravenous contr ast. PULMONARY ANGIOGRAPHY PROTOCOL was utilized using a bolus-tracking technique centered on the hima n pulmonary artery. Axial, coronal and sagittal multiplanar and MIP reformats were performed. Radiation Dose Information: CT Dose: CTDI volume is 29 mGy. Dose-length product is 997 mGy*cm The dose indicators for CT are the volume Computed Tomography (CT) Dose Index (CTDIvol) and the Dose Length Product (DLP), and are measured in units of mGy and mGy-cm, respectively. These indicators are not patient dose, but values generated from the CT scanner acquisition factors. The report includes radiation exposure data for exposures received during this examination. Comparison: CT ANGIO CHEST CONTRAST on DOS: 12/24/20 Findings: Pulmonary artery: There is no evidence of a pulmonary arterial filling defect to suggest pulmonary e mbolism. The main pulmonary artery demonstrates normal caliber. Lungs/Pleura: No focal consolidation, pulmonary mass, or suspicious pulmonary nodule. There is no pl eural effusion. Heart/Vascular Structures: Normal heart size. The thoracic aorta demonstrates normal caliber. There is no evidence of pericardial effusion. Lymph Nodes: There is no evidence of thoracic lymphadenopathy. Musculoskeletal: No acute osseous abnormality. Upper abdomen: Gallbladder is surgically absent. Limited portions of the upper abdomen are unremarka ble. IMPRESSION: 1. There is no acute intrathoracic abnormality. There is no evidence of a pulmonary arterial filling defect to suggest pulmonary embolism. HS:Y
[2024-09-28] MEDS ORDERED: HYDROcodone-ACET 10/325MG TAB PO PRN (13:45)
[2024-09-28] MEDS ORDERED: ACETAMINOPHEN 500 MG TAB or CAP PO PRN (13:45)
--- NOTE | 2024-09-28 15:27 | DVHSR ---
APPROVED REPORT EXAM: LIMITED Two-dimensional and M-mode echocardiogram with Doppler and color Doppler. Blood Pressure: 102/68 mmHg INDICATION Chest Pain Atrial Fibrillation RISK FACTORS Height: 5'6, Weight: 302 DIMENSIONS LVDd4.1 (3.8-5.7cm)LA (2D)3.8 (1.9-4.0cm)Aortic Root2.8 (2.0-3.7cm) LVDs3.0 (2.5-4.0cm)LA (MM) (1.9-4.0cm)Aortic Cusp Exc1.4 (1.5-2.0cm) EF (%) 55.0 (55-70%)Rt. Atrium (1.9-4.0cm)Asc. Aorta2.8 cm IVSd0.8 (0.7-1.1cm)RV (D)3.0 (1.8-2.4cm) PWd0.8 (0.7-1.1cm) Mitral Valve MitralMitral Stenosis E wave0.47m/sMV Mean GR.mmHg A wave0.53m/sMV Peak GR.mmHg E/A ratio0.92D MVAcm2 DECEL [id number] 1/2 Timems Aortic Valve Aortic ValveAortic Stenosis LVOT Diameter2.1 (1.8-2.4cm)Doppler AVAcm2 Pulmonic Valve V20.69m/s LEFT VENTRICLE The left ventricle is of normal size. Wall thickness is normal. Ejection fraction is normal and is estimated at 55-60%. There is no gross regional wall motion abnormalities but endocardial definition is suboptimal. Diastolic function appeared to be normal. E to E prime ratio is in the normal range . RIGHT VENTRICLE The right ventricle isn't well visualized. ATRIA Both atria are likely of normal size. Intra-atrial septum isn't well visualized. MITRAL VALVE Normal structure and function. No significant mitral regurgitation. PULMONIC VALVE Likely normal. TRICUSPID VALVE Not well visualized. PA systolic pressure is not adequately estimated. AORTIC VALVE Likely normal structure and function. GREAT VESSELS The aortic root is of normal size. The ascending aorta isn't visualized. PERICARDIAL EFFUSION No significant pericardial effusion. IVC is of normal size and collapses normally with inspiration. Other Information Quality : Technically LimitedRhythm : Technically limited study due to body habitus. Conclusion The study is very technically limited. Normal left ventricular size and systolic function. Ejection fraction is estimated at 55-60%. The right ventricle is not adequately visualized. No hemodynamically significant valvular disease but not all valves are adequately visualized. No significant pericardial effusion.
[2024-09-28] MEDS: METOPROLOL TARTRATE 25 MG TAB PO SCH (22:00)
[2024-09-28] MEDS: ATORVASTATIN 20 MG TAB PO SCH (22:37)
[2024-09-28] MEDS ORDERED: ACYC200C22 PO (23:12)
[2024-09-28] MEDS ORDERED: HYDR-4798 PO (23:13)
[2024-09-28 23:14] VITALS: BP 93/66; PULSE 73; RESP 14; RESP 17; TEMP 98.1; O2SAT 99
[2024-09-28 23:20] VITALS: PULSE 81
[2024-09-29 00:38] VITALS: BP 101/64; PULSE 80; RESP 14; TEMP 97.8; O2SAT 97
[2024-09-29 05:00] VITALS: BP 102/64; PULSE 83; RESP 19; TEMP 98.2; O2SAT 98
[2024-09-29 07:47] LABS: Basophils # (auto) 0 10 ^3/uL (0-0.2); Eosinophils # (auto) 0.1 10 ^3/uL (0-0.8); Mean Corpuscular Hemoglobin 25.2 pg (28.0-32.0); Mean Corpuscular Volume 75.1 fL (80.0-100.0); Monocytes # (auto) 0.6 10 ^3/uL (0-1.3)
[2024-09-29 07:52] LABS: Basophils % (auto) 0.7 % (0.0-2.0); Eosinophils % (auto) 2.6 % (0.0-7.0); Hematocrit 35.8 % (36.0-46.0); Lymphocytes # (auto) 1.5 10 ^3/uL (0.4-5.4); Lymphocytes % (auto) 27.8 % (10.0-50.0); Mean Corpuscular Hgb Conc. 33.6 g/dL (32.0-36.0); Monocytes % (auto) 11.5 % (0.0-12.0); Neutrophils # (auto) 3.1 10 ^3/uL (1.6-8.6); Neutrophils % (auto) 57.4 % (37.0-80.0); Nucleated Red Blood Cells % 0.2 %; Platelet Count (auto) 221 10^3/uL (140-450); Red Blood Cells 4.77 10^6/uL (4.0-5.20); Red Cell Distribution Width 17.1 % (11.8-14.3); White Blood Cell 5.3 10^3/uL (4.4-10.8)
[2024-09-29 08:00] VITALS: PULSE 83; PULSE 90; RESP 17; O2SAT 96
[2024-09-29 08:04] LABS: Alanine Aminotransferase 11 U/L (7-40); Alkaline Phosphatase 64 U/L (46-116); Anion Gap 4 (5-15); BUN/Creatinine Ratio 14.5 (10.0-20.0); Blood Urea Nitrogen 11 mg/dL (9-23); Calcium 9.4 mg/dL (8.7-10.4); Carbon Dioxide 26 mmol/L (20-31); Cholesterol 182 mg/dL (< 200); Glucose 93 mg/dL (74-106); Potassium 3.9 mmol/L (3.5-5.1); Sodium 139 mmol/L (136-145); Triglycerides 63 mg/dL (< 150)
[2024-09-29 08:05] LABS: Bilirubin, Total 0.5 mg/dL (0.2-1.0); HDL Cholesterol 41 mg/dL (40-59); Total Protein 6.4 g/dL (5.7-8.2)
[2024-09-29 08:11] LABS: Aspartate Aminotransferase 13 U/L (13-40); Chloride 109 mmol/L (98-107); LDL Cholesterol 138 mg/dL (< 100)
[2024-09-29 09:00] VITALS: BP 104/77; PULSE 83; RESP 17; TEMP 98; O2SAT 96
[2024-09-29] MEDS: ASPirin 81 mg TAB PO SCH (09:24)
[2024-09-29] MEDS: DOCUSATE SOD 100 MG CAP PO SCH (09:28)
--- NOTE | 2024-09-29 09:37 | ECG ---
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
--- NOTE | 2024-09-29 11:40 | DVHDSRES ---
Discharge Summary Date of Admission Resident Creating Document: RADHA EISENBERG RESIDENT Sep 28, 2024 at 12:25 Date of Discharge: Sep 29, 2024 Admitting Diagnosis Chest pain rule out ACS Wounds: No wound was present Labs/Diagnostic Data: Laboratory Results Test 09/29/24 11:00 09/29/24 07:28 09/28/24 10:30 09/28/24 09:39 White Blood Count 5.3 10^3/uL (4.4-10.8) Red Blood Count 4.77 10^6/uL (4.0-5.20) Hemoglobin 12.0 g/dL (12.2-16.2) Hematocrit 35.8 % (36.0-46.0) Mean Corpuscular Volume 75.1 fL (80.0-100.0) Mean Corpuscular Hemoglobin 25.2 pg (28.0-32.0) Mean Corpuscular Hemoglobin Concent 33.6 g/dL (32.0-36.0) Red Cell Distribution Width 17.1 % (11.8-14.3) Platelet Count 221 10^3/uL (140-450) Mean Platelet Volume 7.6 fL (6.9-10.8) Neutrophils (%) (Auto) 57.4 % (37.0-80.0) Lymphocytes (%) (Auto) 27.8 % (10.0-50.0) Monocytes (%) (Auto) 11.5 % (0.0-12.0) Eosinophils (%) (Auto) 2.6 % (0.0-7.0) Basophils (%) (Auto) 0.7 % (0.0-2.0) Neutrophils # (Auto) 3.1 10 ^3/uL (1.6-8.6) Lymphocytes # (Auto) 1.5 10 ^3/uL (0.4-5.4) Monocytes # (Auto) 0.6 10 ^3/uL (0-1.3) Eosinophils # (Auto) 0.1 10 ^3/uL (0-0.8) Basophils # (Auto) 0 10 ^3/uL (0-0.2) Nucleated Red Blood Cells 0.2 % Sodium Level 139 mmol/L (136-145) Potassium Level 3.9 mmol/L (3.5-5.1) Chloride Level 109 mmol/L (98-107) Carbon Dioxide Level 26 mmol/L (20-31) Anion Gap 4 (5-15) Blood Urea Nitrogen 11 mg/dL (9-23) Creatinine 0.76 mg/dL (0.550-1.02) Glomerular Filtration Rate Calc 100 mL/min (>90) BUN/Creatinine Ratio 14.5 (10.0-20.0) Serum Glucose 93 mg/dL (74-106) Calcium Level 9.4 mg/dL (8.7-10.4) Total Bilirubin 0.5 mg/dL (0.2-1.0) Aspartate Amino Transferase (AST) 13 U/L (13-40) Alanine Aminotransferase (ALT) 11 U/L (7-40) Alkaline Phosphatase 64 U/L (46-116) Total Protein 6.4 g/dL (5.7-8.2) Albumin 4.0 g/dL (3.2-4.8) Triglycerides Level 63 mg/dL (< 150) Cholesterol Level 182 mg/dL (< 200) LDL Cholesterol 138 mg/dL (< 100) HDL Cholesterol 41 mg/dL (40-59) Troponin I High Sensitivity < 3 ng/L (</=34) Urine Color Yellow (Yellow) Urine Clarity Turbid (Clear) Urine pH 5.5 (5.0-9.0) Urine Specific [place] 1.035 (1.001-1.035) Urine Protein Trace (Negative) Urine Ketones Negative (Negative) Urine Blood Negative /uL (Negative) Urine Nitrite Negative (Negative) Urine Bilirubin Negative (Negative) Urine Urobilinogen Normal mg/dL (Negative) Urine Leukocyte Esterase Trace /uL (Negative) Urine RBC 2 /hpf (0 - 4) Urine Microscopic WBC 3 /HPF (0-5) Urine Squamous Epithelial Cells Few /hpf (<5) Urine Bacteria None seen /hpf (None Seen) Urine Mucus Few (None Seen) Urine Glucose Normal mg/dL (Normal) Urine Test Negative (Negative) Test 09/28/24 09:38 Prothrombin Time 10.3 sec (9.3-11.8) Prothrombin Time INR 0.97 (0.9-1.15) D-Dimer, Quantitative 0.68 mg/L FEU (0.0-0.49) Magnesium Level 1.8 mg/dL (1.6-2.6) Lipase 32 U/L (12-53) Other Laboratory Tests 09/29/24 07:28 Brief Hx & Hospital Course: This is 44-year-old female with past medical history of hyperlipidemia, recurrent genital herpes, vertigo and past surgical history of cholecystectomy, presented to the ED with a chief complaint of chest pain on and off for last 3 weeks prior to this admission. patient states that chest pain is sharp in nature, located in the central part of the chest, non radiating, 8/10 without any aggravating and relieving factors and not associated with dizziness, diaphoresis, nausea or vomiting. she smokes 3 packs cigarettes per day, nonalcoholic and never tried any other drugs. Hospital Course: initial 12 lead EKG and troponins were unremarkable, D-dimer was elevated at 0.[address] angio excluded the possibility of PE and echo demonstrated ejection fraction 55-60%. Patient was treated with aspirin 81 mg daily, atorvastatin 40 mg at HS. Counseled patient regarding quit smoking, DASH diet, low-salt diet, moderate intensity physical exercise and lifestyle modification. Discharge plan was discussed with the patient and all questions were answered. Patient is being discharged to home. Discharge diagnosis: Chest pain ruled out ACS Chest pain likely due to anxiety. Ruled out acute cystitis Nicotine dependence Morbid obesity ( BMI 46.3 kg/m2) Discharge Plan: Discharge disposition: Home Medications : Sent refill for acyclovir 400 mg daily and hydrocodone/acetaminophen( 5 / 325 mg) 1 tab p.o. Q8hr as needed. Follow up : [facility] clinic in 1 week PCP in 1 week. Smoking cessation: Counseled patient regarding quit smoking for more than 20 minutes and advised to make a plan. Consults/Reason for consult No consultation was done. Operations or Procedures CHEST RADIOGRAPH Indication: CP Technique: Single frontal view of the chest was obtained COMPARISON: CHEST PORTABLE on DOS: 12/19/20 ; CT scan of the chest dated 12/24/2020 FINDINGS: No pneumothorax, pulmonary edema, or consolidative infiltrates. The heart is not enlarged. No fractures are identified about the bony thorax. There is abundant overlying adipose tissue. IMPRESSION: Obesity without evidence of acute intrathoracic process. CTA CHEST INDICATION: eval for pe elevated ddimer TECHNIQUE: Multidetector CTA of the chest was performed of the chest with 100 cc of intravenous contrast. PULMONARY ANGIOGRAPHY PROTOCOL was utilized using a bolus-tracking technique centered on the main pulmonary artery. Axial, coronal and sagittal multiplanar and MIP reformats were performed. Radiation Dose Information: CT Dose: CTDI volume is 29 mGy. Dose-length product is 997 mGy*cm The dose indicators for CT are the volume Computed Tomography (CT) Dose Index (CTDIvol) and the Dose Length Product (DLP), and are measured in units of mGy and mGy-cm, respectively. These indicators are not patient dose, but values generated from the CT scanner acquisition factors. The report includes radiation exposure data for exposures received during this examination. Comparison: CT ANGIO CHEST CONTRAST on DOS: 12/24/20 Findings: Pulmonary artery: There is no evidence of a pulmonary arterial filling defect to suggest pulmonary embolism. The main pulmonary artery demonstrates normal caliber. Lungs/Pleura: No focal consolidation, pulmonary mass, or suspicious pulmonary nodule. There is no pleural effusion. Heart/Vascular Structures: Normal heart size. The thoracic aorta demonstrates normal caliber. There is no evidence of pericardial effusion. Lymph Nodes: There is no evidence of thoracic lymphadenopathy. Musculoskeletal: No acute osseous abnormality. Upper abdomen: Gallbladder is surgically absent. Limited portions of the upper abdomen are unremarkable. IMPRESSION: 1. There is no acute intrathoracic abnormality. There is no evidence of a pulmonary arterial filling defect to suggest pulmonary embolism. EXAM: LIMITED Two-dimensional and M-mode echocardiogram with Doppler and color Doppler. Blood Pressure: 102/68 mmHg INDICATION Chest Pain Atrial Fibrillation RISK FACTORS Height: 5'6, Weight: 302 DIMENSIONS LVDd 4.1 (3.8-5.7cm) LA (2D) 3.8 (1.9-4.0cm) Aortic Root 2.8 (2.0- 3.7cm) LVDs 3.0 (2.5-4.0cm) LA (MM) (1.9-4.0cm) Aortic Cusp Exc 1.4 (1.5- 2.0cm) EF (%) 55.0 (55-70%) Rt. Atrium (1.9-4.0cm) Asc. Aorta 2.8 cm IVSd 0.8 (0.7-1.1cm) RV (D) 3.0 (1.8-2.4cm) PWd 0.8 (0.7-1.1cm) Mitral Valve Mitral Mitral Stenosis E wave 0.47m/s MV Mean GR. mmHg A wave 0.53m/s MV Peak GR. mmHg E/A ratio 0.9 2D MVA cm2 DECEL Time 110ms PRESS 1/2 Time ms Aortic Valve Aortic Valve Aortic Stenosis LVOT Diameter 2.1 (1.8-2.4cm) Doppler WALI cm2 Pulmonic Valve V2 0.69m/s LEFT VENTRICLE The left ventricle is of normal size. Wall thickness is normal. Ejection fraction is normal and is estimated at 55-60%. There is no gross regional wall motion abnormalities but endocardial definition is suboptimal. Diastolic function appeared to be normal. E to E prime ratio is in the normal range. RIGHT VENTRICLE The right ventricle isn't well visualized. ATRIA Both atria are likely of normal size. Intra-atrial septum isn't well visualized. MITRAL VALVE Normal structure and function. No significant mitral regurgitation. PULMONIC VALVE Likely normal. TRICUSPID VALVE Not well visualized. PA systolic pressure is not adequately estimated. AORTIC VALVE Likely normal structure and function. GREAT VESSELS The aortic root is of normal size. The ascending aorta isn't visualized. PERICARDIAL EFFUSION No significant pericardial effusion. IVC is of normal size and collapses normally with inspiration. Other Information Quality : Technically Limited Rhythm : Technically limited study due to body habitus. Conclusion The study is very technically limited. Normal left ventricular size and systolic function. Ejection fraction is estimated at 55-60%. The right ventricle is not adequately visualized. No hemodynamically significant valvular disease but not all valves are adequately visualized. No significant pericardial effusion. Condition at Discharge: Stable Final Diagnosis/Problems List Chest pain ruled out ACS Chest pain likely due to anxiety. Ruled out acute cystitis Nicotine dependence Morbid obesity ( BMI 46.3 kg/m2) Discharge Disposition: Home Discharge Instruct/Medications Diet: Regular Activity: No Restrictions, As Tolerated Follow Up/Referral: Follow up with DC clinic in 1week Follow up with PCP in 1 week Discharge Statement: "Patient was advised to return to the ER or call 911 if any headaches, dizziness, shortness of breath, chest pain, abdominal pain, bleeding, fevers, or worsening of medical condition. Patient was counseled about treatment plan, medications, possible side effects, patientverbalized understanding. All questions were answered to the best of my ability. This discharge took greater then 30 minutes in planning, reviewing documentation, counseling the patient, and discussing with other team members." ASSESSMENT ASSESSMENT Assessment Chest pain ruled out ACS Chest pain likely due to anxiety. Ruled out acute cystitis Date of Service: Sep 29, 2024 Billing Provider: PORTER HANLEY MD Common Visit Codes: 78004-WFQ/OBS DISCH DAY >30min RADHA EISENBERG RESIDENT Sep 29, 2024 11:40 PORTER HANLEY MD Oct 03, 2024 09:49
[2024-09-29 11:45] LABS: Rapid Influenza A Negative (Negative); Rapid Influenza B Negative (Negative)
[2024-09-29 11:46] LABS: COVID19 ANTIGEN SOFIA FIA NEGATIVE (NEGATIVE)
[2024-09-29 13:00] VITALS: BP 103/74; PULSE 77; RESP 17; TEMP 97.9; O2SAT 98
[2024-09-29 13:10] VITALS: BP 103/74; PULSE 77; RESP 17; TEMP 97.9; O2SAT 98
== END 2024-09-29 13:44 | disposition home or self-care (01) | DRG 203 ==
LOC: ER 09:26 → TELE 12:25 → TELE-E-ADS 22:20 → TELE-CENTR 09-29 01:30
PROVIDERS: ADMIT Nurse Practitioner Family; ATTEND Nurse Practitioner Family
DX: R07.89 Other chest pain (principal); E66.01 Morbid (severe) obesity due to excess calories; F41.9 Anxiety disorder, unspecified; E78.5 Hyperlipidemia, unspecified; F17.210 Nicotine dependence, cigarettes, uncomplicated; Z20.822 Contact with and (suspected) exposure to COVID-19; F32.A Depression, unspecified; Z88.0 Allergy status to penicillin; Z90.49 Acquired absence of other specified parts of digestive tract; Z68.42 Body mass index [BMI] 45.0-49.9, adult
CPT/HCPCS: 36415; 71045; 71275; 80053; 80061; 81001; 81025; 83690; 83735; 84484; 85025; 85379; 85610; 87426; 87804; 93005; 93306; G0378